=== PATIENT | male | born 1995 | race Hispanic/Latino ===

== ENCOUNTER 2021-11-13 12:23 | Emergency (ER) | payer SELFPAY ==
[~2021-11-13] VITALS: Ht 172.7 cm; Wt 90.8 kg
[2021-11-13] MEDS ORDERED: DIPHENHYDRAMINE25 M2 PO (13:16)
== END 2021-11-13 13:24 | disposition home or self-care (01) ==
LOC: FSED 12:52
DX: R53.1 Weakness (principal); F43.21 Adjustment disorder with depressed mood; F17.210 Nicotine dependence, cigarettes, uncomplicated
CPT/HCPCS: 99283